=== PATIENT | male | born 1955 | race Caucasian/White ===

== ENCOUNTER 2022-09-10 01:14 | Emergency (ER) | payer SELFPAY ==
[~2022-09-10] VITALS: Ht 167.6 cm; Wt 79.4 kg
--- NOTE | 2022-09-10 01:14 | NUR ---
PT [employer], PREBOOK. TAKEN TO CHAIR
[2022-09-10 01:19] VITALS: BP 164/99
[2022-09-10] MEDS ORDERED: INSULIN REGULAR, HUMAN 100 UNIT/ML VIAL SUBQ ONE (01:25)
[2022-09-10 02:00] VITALS: BP 164/99
--- NOTE | 2022-09-10 02:00 | NUR ---
PATIENT BIB [employer]. PATIENT EXAMINED BY DR. remy. PATIENT MEDICALLY CLEARED AND RELEASED IN CUSTODY IN STABLE CONDITION. ORIGINAL PRE-BOOK FORM GIVEN TO OFFICER lena.
== END 2022-09-10 02:00 ==
LOC: MED 01:14
DX: E11.65 Type 2 diabetes mellitus with hyperglycemia (principal); R42 Dizziness and giddiness; Z02.89 Encounter for other administrative examinations
CPT/HCPCS: 96372; 99283; J1815